=== PATIENT | female | born 1995 | race Caucasian/White ===

== ENCOUNTER 2020-01-28 18:17 | Emergency (ER) | payer OTHER ==
[2020-01-28 18:31] VITALS: BP 99/64
[2020-01-28] MEDS ORDERED: KETOROLAC TROMETHAMINE INJ/PF 30 MG/1 ML SDV IM ONE (19:05)
[2020-01-28] MEDS ORDERED: ONDANSETRON 4 MG TAB.RAPDIS PO ONE (19:08)
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
== END 2020-01-28 19:17 | disposition home or self-care (01) ==
LOC: ER 18:17
DX: S13.4XXA Sprain of ligaments of cervical spine, initial encounter (principal); R51 Headache; M79.18 Myalgia, other site; V43.52XA Car driver injured in collision with other type car in traffic accident, initial encounter; Z88.0 Allergy status to penicillin
CPT/HCPCS: 99283; 96372; S0119; J1885